=== PATIENT | female | born 1950 | race Caucasian/White ===

== ENCOUNTER → 2017-05-22 08:06 | Outpatient (CLI) | payer MEDICARE, OTHER | END | disposition home or self-care (01) | LOC: D.OPS 08:06 | DX: K21.9 Gastro-esophageal reflux disease without esophagitis (principal) ==

== ENCOUNTER 2017-06-11 07:39 | Inpatient (IN) | payer MEDICARE, OTHER ==
[2017-06-07 11:30] LABS: HEMATOCRIT 42.6 % (36.0-48.0); HEMOGLOBIN 14.1 g/dL (12-16); MCH 30.7 pg (26.0-34.0); MCHC 33.1 g/dL (31.0-37.0); MCV 92.6 fL (80.0-100.0); MEAN PLATELET VOLUME 10.2 fL (7.4-10.4); RBC 4.6 10x6/uL (4.00-5.40); RDW 13.2 % (11.5-14.5); WBC 6.2 10x3/uL (4.8-10.8)
[2017-06-07 11:43] LABS: ANION GAP 12.1 mmol/L (8-16); CALCIUM 9.6 mg/dL (8.5-10.1); CREATININE - SERUM 1.3 mg/dL (0.6-1.3); POTASSIUM - SERUM 4.1 mmol/L (3.5-5.1)
[~2017-06-11] VITALS: Ht 157.5 cm; Wt 68.2 kg
[~2017-06-11 07:39] MED LIST: ESTRACE1 MG PO; HCTZ25 MG PO; LEVOTHYROXINE75 MCG PO; LEXAPRO20 MG PO; PROTONIX40 MG PO
[2017-06-11 08:03] VITALS: BMI 28.2
[2017-06-11 13:13] VITALS: BP 119/59
[2017-06-11 14:51] VITALS: Ht 157.5 cm; Wt 68.2 kg
[2017-06-12 06:38] LABS: BASOPHILS 0.8 % (0-2); EOSINOPHILS 1.9 % (0-7); HEMATOCRIT 40.9 % (36.0-48.0); IMMATURE GRANULOCYTES 0.2 % (0-5); LYMPHOCYTES 18.8 % (15-50); MCH 29.8 pg (26.0-34.0); MCHC 31.8 g/dL (31.0-37.0); MCV 93.8 fL (80.0-100.0); MEAN PLATELET VOLUME 10.3 fL (7.4-10.4); MONOCYTES 5.4 % (2-11); NEUTROPHILS 72.9 % (40-80); PLATELET COUNT 234 10x3/uL (130-400); RBC 4.36 10x6/uL (4.00-5.40); RDW 13.2 % (11.5-14.5); WBC 6.3 10x3/uL (4.8-10.8)
[2017-06-12 07:07] LABS: ANION GAP 11.6 mmol/L (8-16); BILIRUBIN - TOTAL 0.6 mg/dL (0.2-1.3); CALCIUM 8.3 mg/dL (8.5-10.1); CARBON DIOXIDE 28.8 mmol/L (21.0-32.0); CREATININE - SERUM 1.4 mg/dL (0.6-1.3); POTASSIUM - SERUM 3.4 mmol/L (3.5-5.1); PROTEIN - SERUM 6.6 g/dL (6.4-8.2)
[2017-06-12] MEDS ORDERED: HYDROCODON-ACE1 EAC7 PO (11:34)
== END 2017-06-12 13:50 | disposition home or self-care (01) | DRG 328 ==
LOC: D.OPS 07:39 → D.MS 07:40 → D.OPS 09:15 → D.PAN 09:15 → D.OPS 09:45 → D.MS 12:59
PROVIDERS: Anesthesiology; Surgery
PROC: 0DV44ZZ Restriction of Esophagogastric Junction, Percutaneous Endoscopic Approach (ICD-10-PCS; principal; 2017-06-11 09:45)
PROC: 0BQT4ZZ Repair Diaphragm, Percutaneous Endoscopic Approach (ICD-10-PCS; 2017-06-11 09:45)
DX: K21.9 Gastro-esophageal reflux disease without esophagitis (principal); K44.9 Diaphragmatic hernia without obstruction or gangrene